=== PATIENT | male | born 1965 | race Caucasian/White ===

== ENCOUNTER → 2017-08-24 09:10 | Outpatient (CLI) | payer OTHER, SELFPAY ==
[2017-08-24 09:42] LABS: Hematocrit 44.6 % (42.0-52.0); Hemoglobin 15.4 g/dL (14.1-18.0)
[2017-08-24 10:38] LABS: Anion Gap 10.3 mEq/L (5-15); Blood Urea Nitrogen 18 mg/dL (7-18); Carbon Dioxide 28 mmol/L (21.0-32.0); Chloride 105 mmol/L (98-107); Creatinine,Serum 0.87 mg/dL (0.70-1.30); Estimated Glomerular Filt Rate 93 ml/min (>60); GFR (African American) 113 ML/MIN (>60); Glucose 141 mg/dL (74-106); Potassium 4.3 mmoL/L (3.5-5.1); Sodium 139 mmol/L (136-145)
[2017-08-24 11:53] LABS: C-Reactive Protein < 0.2 mg/L (0.0-0.9)
[2017-08-24 12:26] LABS: Erythrocyte Sedimentation Rate 8 mm/hr (0-15)
[2017-08-25 18:01] LABS: Antinuclear Antibodies, IFA Negative (.)
[2017-09-02 18:18] LABS: HLA-B27 Negative (.)
== END ==
PROVIDERS: PCP Internal Medicine Adolescent Medicine; Visit Provider Otolaryngology
DX: M79.1 Myalgia (principal); J32.0 Chronic maxillary sinusitis; Z01.818 Encounter for other preprocedural examination
CPT/HCPCS: 36415; 80048; 85014; 85018; 85651; 86038; 86140; 86812

== ENCOUNTER → 2017-08-31 09:02 | Outpatient (CLI) | payer OTHER, SELFPAY ==
--- NOTE | 2017-08-31 09:11 | XR_ITS ---
XR elbow RT min 3V HISTORY: ITS.REASON: RT ELBOW PAIN ORDERING PHYSICIAN: Mitch Hernandez MD PATIENT AGE: 51 years COMPARISON: None FINDINGS: BONY STRUCTURES: No fracture or dislocation. No lytic or blastic change. Normal mineralization. SOFT TISSUES: Unremarkable. No radio opaque foreign bodies. No displaced fat pad. JOINT SPACE: Well-preserved. No significant arthritic changes evident. IMPRESSION: Negative elbow.
== END ==
PROVIDERS: PCP Internal Medicine Adolescent Medicine; Visit Provider Internal Medicine Adolescent Medicine
DX: M25.521 Pain in right elbow (principal)
CPT/HCPCS: 73080

== ENCOUNTER → 2017-09-09 09:06 | Outpatient (CLI) | payer OTHER, SELFPAY ==
--- NOTE | 2017-09-09 09:24 | MR_ITS ---
MR elbow RT wo con CLINICAL INDICATION: Right lateral elbow pain ITS.REASON: RIGHT ELBOW PAIN ORDERING PHYSICIAN: Mitch Hernandez MD PATIENT AGE: 51 years COMPARISON: Radiograph 08/31/2017 FINDINGS: There is normal alignment. No fracture or bone bruise evident. The ulnar collateral ligament is intact. There is increased T2 signal involving the proximal aspect of the radial collateral ligament at the insertion on the distal humerus consistent with at least a partial tear.. The lateral ulnar collateral ligament appears intact. The annular ligament also appears intact. There is increased T2 signal involving the proximal aspect of the common extensor tendon consistent with lateral epicondylitis. Common flexor tendon appears intact. The brachialis tendon and biceps tendon appear intact. IMPRESSION: 1. Increased T1 and T2 signal involves the proximal aspect of the common extensor tendon consistent with partial tear/tendinosis/tendinopathy i.e., lateral epicondylitis 2. Partial tear of the radial collateral ligament suspected.
== END ==
PROVIDERS: Family Provider Internal Medicine Adolescent Medicine; PCP Internal Medicine Adolescent Medicine; Visit Provider Internal Medicine Adolescent Medicine
DX: M25.521 Pain in right elbow (principal)
CPT/HCPCS: 73221

== ENCOUNTER → 2019-03-06 07:55 | Outpatient (POV) | payer OTHER, SELFPAY | PROVIDERS: Visit Provider Dermatology | DX: Z00.00 Encounter for general adult medical examination without abnormal findings (principal) ==

== ENCOUNTER → 2020-03-19 12:56 | Outpatient (CLI) | payer OTHER, SELFPAY ==
--- NOTE | 2020-03-19 13:03 | XR_ITS ---
PROCEDURE: XR HAND LT MIN 3V CLINICAL INDICATION: L HAND PAIN Pain and swelling COMPARISON: No exams were available for comparison FINDINGS: No fracture or dislocation. No lytic or blastic change. There is normal mineralization. The joint spaces are well-preserved. No significant degenerative/arthritic changes. No erosive changes evident. Other findings:None. IMPRESSION: No acute findings. Dictated b Rodri Ozuna MD 03/19/2020 13:33 Rodri Ozuna MD in [place] 03/19/2020 13:33
== END ==
PROVIDERS: PCP Internal Medicine Adolescent Medicine; Visit Provider Internal Medicine Adolescent Medicine
DX: M79.642 Pain in left hand (principal)
CPT/HCPCS: 73130

== ENCOUNTER → 2020-03-20 07:33 | Outpatient (CLI) | payer OTHER, SELFPAY ==
[2020-03-20 08:11] LABS: Basophils % 0.8 % (0.1-2.0); Eosinophils # 0.2 K/mm3 (0.0-0.4); Eosinophils % 3.7 % (0.1-12.0); Hematocrit 41.7 % (42.0-52.0); Lymphocytes # 1.9 K/mm3 (0.7-4.5); Lymphocytes % 40.5 % (10-50); Mean Corpuscular Hemoglobin 31.4 pg (27.0-31.2); Mean Corpuscular Volume 87.2 fl (80-94); Mean Platelet Volume 8.4 fl (7.4-10.4); Monocytes # 0.3 K/mm3 (0.1-1.0); Monocytes % 6.4 % (1.7-9.3); Neutrophils # 2.3 K/mm3 (1.8-7.8); Neutrophils % 48.5 % (37.0-80.0); Platelet Count 197 K/mm3 (142-424); Red Blood Count 4.78 M/mm3 (4.60-6.20); Red Cell Distribution Width 13.5 % (11.5-17.5); White Blood Count 4.8 K/mm3 (4.8-10.8)
[2020-03-20 08:29] LABS: Chloride 105 mmol/L (98-107); Potassium 4.6 mmoL/L (3.5-5.1); Sodium 141 mmol/L (136-145)
[2020-03-20 08:31] LABS: Alanine Aminotransferase 21 U/L (12-78); Alkaline Phosphatase 81 U/L (38-126); Anion Gap 12.6 mEq/L (5-15); Aspartate Amino Transferase 22 U/L (17-59); Bilirubin,Total 0.5 mg/dl (0.2-1.3); Blood Urea Nitrogen 20 mg/dl (9-20); Carbon Dioxide 28 mmol/L (22.0-30.0); Creatine Kinase 72 U/L (55-170); Estimated Glomerular Filt Rate 102 ml/min (>60); GFR (African American) 123 ML/MIN (>60)
[2020-03-20 08:32] LABS: Albumin Level 4.2 g/dl (3.5-5.0); Albumin/Globulin Ratio 1.9 (1.1-1.8); Calcium 9.7 mg/dl (8.4-10.2); Chol/HDL Ratio 2.9 (1-3.5); Cholesterol 144 mg/dl (140-200); Globulin 2.2 g/dL (1.3-3.2); Glucose 113 mg/dl (74-100); HDL Cholesterol 49 mg/dl (40-60); Magnesium 2.1 mg/dl (1.6-2.3); Total Protein,Serum 6.4 g/dl (6.3-8.2); Triglycerides 69 mg/dl (30-150); VLDL Cholesterol 14 mg/dL (0-40)
[2020-03-20 08:43] LABS: Direct LDL Cholesterol 86.81 mg/dL (100-129)
[2020-03-20 08:49] LABS: 25-OH Vitamin D, Total 35.8 ng/mL (30-100)
[2020-03-20 08:51] LABS: Triiodothryronine (T3) Uptake 33 % (23.5-40.5)
[2020-03-20 08:52] LABS: Free Thyroxine Index 2.8 ug/dL (5.93-13.13); T4 (Thyroxine) 8.4 ug/dl (5.53-11.0)
[2020-03-20 08:55] LABS: Erythrocyte Sedimentation Rate 8 mm/hr (0-20)
[2020-03-20 09:06] LABS: Thyroid Stimulating Hormone 1.62 uIU/mL (0.465-4.68)
[2020-03-21 14:15] LABS: Vitamin B12 564 pg/mL (232-1245)
== END ==
PROVIDERS: Visit Provider Internal Medicine Adolescent Medicine
DX: Z00.00 Encounter for general adult medical examination without abnormal findings (principal); M79.10 Myalgia, unspecified site
CPT/HCPCS: 36415; 80053; 80061; 82306; 82550; 82607; 83735; 84436; 84443; 84479; 85025; 85651

== ENCOUNTER → 2020-03-29 07:13 | Outpatient (CLI) | payer OTHER, SELFPAY ==
[2020-03-29 07:58] LABS: Erythrocyte Sedimentation Rate 8 mm/hr (0-20)
[2020-03-29 10:01] LABS: Uric Acid 6.2 mg/dl (3.5-8.5)
== END ==
PROVIDERS: Visit Provider Internal Medicine Adolescent Medicine
DX: M12.9 Arthropathy, unspecified (principal)
CPT/HCPCS: 36415; 84550; 85651

== ENCOUNTER 2021-01-05 19:49 | Emergency (ER) | payer OTHER, SELFPAY ==
[2021-01-05 20:02] VITALS: BP 151/85; PULSE 83; RESP 18; TEMP 37.2; O2SAT 97; BMI 31.5
--- NOTE | 2021-01-05 20:17 | HMH.EDUTC ---
[facility] Disposition Clinical Impression: Sinusitis Qualifiers: Sinusitis location: unspecified location Chronicity: acute Recurrence: non-recurrent Qualified Code(s): J01.90 - Acute sinusitis, unspecified Disposition: Home, Self-Care Condition on Discharge: Good Instructions: Sinusitis, DI for Sinusitis Additional Instructions: Drink plenty of fluids. Take tylenol or ibuprofen for pain or fever. Take the medications as directed. Follow up with your regular doctor. GO TO THE ER FOR ANY WORSENING SYMPTOMS Prescriptions: predniSONE [Deltasone 10mg tablet] 10 mg PO BID 3 Days #6 tab Transmission Status: Received by [facility] # Benzonatate [Tessalon Perle 100mg Cap] 100 mg PO TIDP PRN #30 cap PRN Reason: Cough Transmission Status: Received by [facility] # Azithromycin [Z-Ludwig 250mg Tab*] 250 mg PO UD DOSE PK #6 tab Transmission Status: Received by [facility] # Referrals: Mitch Hernandez MD [Primary Care Provider] - Time of Disposition: 20:21 Medical Decision Making - Medical Records Medical records reviewed: No: I reviewed the patient's medical records. - Sunil Inquiry Pt receiving controlled substance: No Vital Signs: 01/05/21 20:02 01/05/21 20:24 Temperature 99.0 F 99.0 F Temperature Source Oral Pulse Rate 83 Pulse Rate [Right Brachial] 83 Respiratory Rate 18 18 Blood Pressure 151/85 H Blood Pressure [Right Arm] 151/85 H Blood Pressure Mean [Right Arm] 107 Blood Pressure Source [Right Arm] Automatic Cuff Blood Pressure Position [Right Arm] Sitting 02 Sat by Pulse Oximetry 97 Oxygen Delivery Method Room Air Orders (Tests/Meds): ED MEDICATIONS Discontinued Medications Generic Name Dose Route Start Last Admin Trade Name Freq PRN Reason Stop Dose Admin Ceftriaxone Sodium 1 gm 01/05/21 20:12 01/05/21 20:23 Ceftriaxone 1gm Vial IM 01/05/21 20:13 1 gm ONCE ONE Administration Protocol Lidocaine HCl 0 ml 01/05/21 20:12 01/05/21 20:23 Lidocaine 1% 5ml Pf Vial IM 01/05/21 20:13 2.1 ml ONCE ONE Administration Methylprednisolone Sodium Succinate 125 mg 01/05/21 20:12 01/05/21 20:23 Methylprednisolone Sod Succ 125mg Vial IM 01/05/21 20:13 125 mg ONCE ONE Administration [facility] HPI - General Stated complaint: cough,sinus Time Seen by Provider: 01/05/21 20:17 Mode of Arrival: Ambulatory Source of Information: Patient Limitations: No Limitations Description of Symptoms (Recalled from Triage Doc. by RN): PATIENT C/O SINUS DRAINAGE AND DRY COUGH SINCE TUESDAY MORNING HEENT Symptoms (Recalled from RN notes): Yes Resp Symptoms (Recalled from RN notes): Yes Skin Symptoms (Recalled from RN notes): No MS Symptoms (Recalled from RN notes): No Functional Status (Recalled from RN notes): WNL - History of Present Illness Provider Complaint: He states that he has had sinus congestion, sinus drainage and a scratchy sore throat for the past 2 days. - Related Data Previous Rx's Medication Instructions Recorded Azithromycin [Z-Ludwig 250mg Tab*] 250 mg PO UD DOSE PK #6 tab 01/05/21 Benzonatate [Tessalon Perle 100mg 100 mg PO TIDP PRN #30 cap 01/05/21 Cap] predniSONE [Deltasone 10mg tablet] 10 mg PO BID 3 Days #6 tab 01/05/21 Allergies Allergy/AdvReac Type Severity Reaction Status Date / Time No Known Allergies Allergy Verified 01/05/21 20:04 - Worker's Comp Is this a Worker's Comp case?: No [facility] History - Hepatitis A Screen Drug use history?: No High risk sexual behaviors?: No History of sexually transmitted infection?: No Currently employed?: No Childcare worker?: No Do you have indoor plumbing?: Yes Do you have electricity?: Yes Attestation statement:: This patient has been screened for Hepatitis A risk factors. I have reviewed the patient's past medical history: Yes ROS Obtained: Yes All systems reviewed & no additional complaints - Constitutional Constitutional: Wero
[2021-01-05 20:24] VITALS: BP 151/85; PULSE 83; RESP 18; TEMP 37.2; O2SAT 97
== END 2021-01-05 20:33 | disposition home or self-care (01) ==
PROVIDERS: Emergency Provider Nurse Practitioner Family; PCP Internal Medicine Adolescent Medicine
DX: J01.90 Acute sinusitis, unspecified (principal)
CPT/HCPCS: 96372; 99202; G0463

== ENCOUNTER → 2021-06-15 12:13 | Outpatient (CLI) | payer OTHER, SELFPAY ==
[2021-06-15 12:39] LABS: Basophils # 0.1 K/mm3 (0-0.2); Eosinophils # 0.2 K/mm3 (0.0-0.4); Eosinophils % 3.4 % (0.1-12.0); Hematocrit 44.2 % (42.0-52.0); Hemoglobin 14.8 g/dL (14.1-18.0); Lymphocytes # 2.3 K/mm3 (0.7-4.5); Lymphocytes % 39.9 % (10-50); Mean Corpuscular HGB Conc 33.6 g/dL (31.8-35.4); Mean Corpuscular Hemoglobin 30.9 pg (27.0-31.2); Mean Corpuscular Volume 91.9 fl (80-94); Mean Platelet Volume 8.2 fl (7.4-10.4); Monocytes # 0.3 K/mm3 (0.1-1.0); Monocytes % 5.7 % (1.7-9.3); Neutrophils # 2.9 K/mm3 (1.8-7.8); Neutrophils % 50.1 % (37.0-80.0); Platelet Count 211 K/mm3 (142-424); Red Blood Count 4.81 M/mm3 (4.60-6.20); Red Cell Distribution Width 13.6 % (11.5-17.5); White Blood Count 5.9 K/mm3 (4.8-10.8)
[2021-06-15 13:46] LABS: Alanine Aminotransferase 18 U/L (12-78); Albumin Level 4.3 g/dl (3.5-5.0); Albumin/Globulin Ratio 1.9 (1.1-1.8); Alkaline Phosphatase 92 U/L (38-126); Anion Gap 12.1 mEq/L (5-15); Aspartate Amino Transferase 21 U/L (17-59); Bilirubin,Total 0.4 mg/dl (0.2-1.3); Blood Urea Nitrogen 14 mg/dl (9-20); Calcium 9.2 mg/dl (8.4-10.2); Carbon Dioxide 27 mmol/L (22.0-30.0); Chloride 107 mmol/L (98-107); Chol/HDL Ratio 3.6 (1-3.5); Cholesterol 171 mg/dl (140-200); Estimated Glomerular Filt Rate 118 ml/min (>60); GFR (African American) 143 ML/MIN (>60); Globulin 2.3 g/dL (1.3-3.2); Glucose 99 mg/dl (74-100); HDL Cholesterol 47 mg/dl (40-60); Potassium 4.1 mmoL/L (3.5-5.1); Sodium 142 mmol/L (136-145); Total Protein,Serum 6.6 g/dl (6.3-8.2); Triglycerides 118 mg/dl (30-150); VLDL Cholesterol 24 mg/dL (0-40)
[2021-06-15 13:57] LABS: Direct LDL Cholesterol 106.21 mg/dL (100-129)
[2021-06-15 14:03] LABS: Hemoglobin A1C 5.9 % (4.0-6.0)
[2021-06-15 14:16] LABS: Free Thyroxine Index 2.7 ug/dL (5.93-13.13); T4 (Thyroxine) 8.1 ug/dl (5.53-11.0); Triiodothryronine (T3) Uptake 33 % (23.5-40.5)
[2021-06-15 14:30] LABS: Thyroid Stimulating Hormone 1.18 uIU/mL (0.465-4.68)
[2021-06-15 14:35] LABS: Vitamin B12 637 pg/mL (239-931)
== END ==
PROVIDERS: Visit Provider Internal Medicine Adolescent Medicine
DX: M79.10 Myalgia, unspecified site (principal); G60.9 Hereditary and idiopathic neuropathy, unspecified
CPT/HCPCS: 36415; 80053; 80061; 82607; 83036; 83735; 84436; 84443; 84479; 85025

== ENCOUNTER → 2021-09-01 08:03 | Outpatient (CLI) | payer OTHER, SELFPAY | PROVIDERS: Visit Provider Nurse Practitioner | DX: U07.1 COVID-19 (principal) | CPT/HCPCS: C9803; U0003; U0005 ==

== ENCOUNTER 2022-01-10 14:11 | Emergency (ER) | payer OTHER, SELFPAY ==
[2022-01-10 15:01] VITALS: BP 137/82; PULSE 79; RESP 18; TEMP 37.8; O2SAT 96; BMI 34.9
--- NOTE | 2022-01-10 15:25 | HMH.EDUTC ---
[facility] [place] Clinical Impression: Otitis media Qualifiers: Otitis media type: unspecified Laterality: right Qualified Code(s): H66.91 - Otitis media, unspecified, right ear Disposition: Home, Self-Care Condition on Discharge: Good Instructions: Middle Ear Infection, Amoxicillin and Clavulanic Acid, Ruptured Eardrum Additional Instructions: Call ENT and make appointment for follow up and re-evaluation *Monitor Temp, Over the counter Motrin or Tylenol as directed/as needed Tylenol every 4 hours and Motrin every 6 hours (as long as your family doctor has told you that you can take it) for fever or pain. and straight to ER if unable to lower temp less than 101.0 after medication given *Warm salt water gargles may help to soothe the throat *Throat Lozenges *Warm fluids like tea with honey may help to soothe the throat *Sleep elevated *Humidifier/Vaporizer Your throat swab was sent for culture. Those results are typically sent to your primary care. Be sure to follow up in 2-3 days with your family doctor/primary care physician if no improvement so they can review those result and treat if necessary. If you don?t have a primary care doctor, I recommend you get one but in the mean time, you will have to return to a walk in clinic Follow up IMMEDIATELY for new or worsening symptoms or no Noticeable improvement over the next 48-72 hours. 911 for difficulty breathing or swallowing Prescriptions: Amoxicillin [Amoxicillin 500mg Cap] 500 mg PO TID #30 cap Transmission Status: Pending to [id number] predniSONE [Deltasone 10mg tablet] 10 mg PO BID 3 Days #6 tab Transmission Status: Pending to [id number] Referrals: Mitch Hernandez MD [Primary Care Provider] - As needed Vipul Cardoso MD [Physician] - Oli Angeles MD [Physician] - Time of Disposition: 15:50 Medical Decision Making - Sunil Inquiry Pt receiving controlled substance: No Sunil was queried for this patient: No Vital Signs: 01/10/22 15:01 Temperature 100.0 F H Temperature Source Oral Pulse Rate [Left Radial] 79 Respiratory Rate 18 Blood Pressure [Right Arm] 137/82 Blood Pressure Mean [Right Arm] 100 02 Sat by Pulse Oximetry 96 - Lab Data Lab results reviewed: Yes: I reviewed the patient's lab results. Lab Results 01/10/22 15:00: Group A Strep Rapid Negative Orders (Tests/Meds): ORDERS Category Date Time Status Strep Screen Confirmation Stat Micro 01/10/22 15:00 [place] [facility] [place] - General Stated complaint: Ear ache and congestion Time Seen by Provider: 01/10/22 15:25 Source of Information: Patient Description of Symptoms (Recalled from Triage Doc. by RN): patient comes in today with complaints of ear pain and throat pain. patient states that he went to the doctor a month ago, he was placed on medication, this past tuesday patient was given steroid shot. tuesday his throat began hurting and right ear began hurting. pt states that his ear drum busted and he has had drainage HEENT Symptoms (Recalled from RN notes): Yes Resp Symptoms (Recalled from RN notes): No Skin Symptoms (Recalled from RN notes): No MS Symptoms (Recalled from RN notes): No Functional Status (Recalled from RN notes): wnl - History of Present Illness Provider Complaint: Patient state that he started having sinus issues about a month ago States that it started after he was clearing some hay State that PCP give him some steriods and it got a little better then last week started back and he got a steriod shot from his PCP State that yesterday his throat started hurting and continued to get worse throughout the day and his right ear was hurting and felt full States that last night he started chewing some gum and felt a pop in his right ear and fluid started coming out States that today he is still having pain in his throat with swelling and pain in his right ear - Related Data Previous Rx's Medication Instructions Recorded Wai
[2022-01-10 15:35] LABS: Strep Scrn Group A (Rapid) Negative (Negative)
[2022-01-10 16:07] VITALS: BP 137/82; PULSE 79; RESP 18; TEMP 37.8
== END 2022-01-10 16:08 | disposition home or self-care (01) ==
PROVIDERS: Emergency Provider Nurse Practitioner; PCP Internal Medicine Adolescent Medicine
DX: H66.91 Otitis media, unspecified, right ear (principal)
CPT/HCPCS: 87430; 99212; G0463

== ENCOUNTER 2022-10-17 18:25 | Emergency (ER) | payer OTHER, SELFPAY ==
[2022-10-17 18:27] VITALS: BP 139/93; PULSE 78; RESP 18; TEMP 36.8; O2SAT 99; BMI 33.0
--- NOTE | 2022-10-17 18:31 | CT_ITS ---
PROCEDURE INFORMATION: Exam: CT Abdomen And Pelvis Without Contrast Exam date and time: 10/17/2022 5:44 PM Age: 57 years old Clinical indication: Abdominal pain; Flank; Left; Additional info: L kidney stone pain TECHNIQUE: Imaging protocol: Computed tomography of the abdomen and pelvis without contrast. Radiation optimization: All CT scans at this facility use at least one of these dose optimization techniques: automated exposure control; mA and/or kV adjustment per patient size (includes targeted exams where dose is matched to clinical indication); or iterative reconstruction. REPORTING DATA: Count of CT and Cardiac NM exams in prior 12 months: This patient has received 0 known CTs and 0 known cardiac nuclear medicine studies in the 12 months prior to the current study. COMPARISON: No relevant prior studies available. FINDINGS: Liver: Normal. No mass. Gallbladder and bile ducts: Normal. No calcified stones. No ductal dilation. Pancreas: Normal. No ductal dilation. Spleen: Normal. No splenomegaly. Adrenal glands: Normal. No mass. Kidneys and ureters: On axial image 106, there is a 3.5 mm stone at the left ureterovesical junction producing mild left hydroureteronephrosis and moderate left perinephric edema. A 7 mm caliceal stone is noted in the left kidney. Right kidney appears normal. Stomach and bowel: Unremarkable. No obstruction. No mucosal thickening. Appendix: No evidence of appendicitis. Intraperitoneal space: Unremarkable. No free air. No significant fluid collection. Vasculature: Unremarkable. No abdominal aortic aneurysm. Lymph nodes: Unremarkable. No enlarged lymph nodes. Urinary bladder: Unremarkable as visualized. Reproductive: Unremarkable as visualized. Bones/joints: Mild degenerative changes are noted throughout the lumbar spine. Soft tissues: There is a small fat containing left inguinal hernia. IMPRESSION: 3.5 mm left UVJ stone with mild left hydronephrosis and significant left perinephric edema/inflammation.
[2022-10-17 18:39] LABS: Microscopic, Urine URINE MICROSCOPIC (MICROSCOPIC)
--- NOTE | 2022-10-17 18:41 | PC.NURSE ---
PT TO CT AT THIS TIME
[2022-10-17 18:42] LABS: Appearance,Urine SL CLOUDY (Clear); Bilirubin,Urine Negative (Negative); Blood, Urine 3+ (Negative); Color,Urine YELLOW (Yellow); Glucose,Urine (UA) Negative (Negative); Ketones,Urine Negative (Negative); Leukocyte Esterase,Urine Negative (Negative); Nitrate,Urine Negative (Negative); PH,Urine 6.5 (5.0-8.5); Protein,Urine Negative (Negative); Specific Gravity, Urine 1.025 (1.005-1.030); Urobilinogen,Urine 0.2 EU/dl (0.2)
--- NOTE | 2022-10-17 18:48 | PC.NURSE ---
PT RETURNED FROM CT
--- NOTE | 2022-10-17 18:53 | PC.NURSE ---
DR POLLOCK AT BEDSIDE
[2022-10-17 18:58] LABS: Bacteria,Urine Trace /lpf; Calcium Oxalate Crystals,Urine Trace /lpf; RBC,Urine TNTC #/hpf (0-3); Squamous Epithelial Cell,Urine Occasional #/hpf (0-5); WBC,Urine Occasional #/hpf (0-3)
[2022-10-17 19:00] VITALS: BP 155/89; PULSE 76; O2SAT 96
[2022-10-17 19:07] LABS: Chloride 101 mmol/L (98-107)
[2022-10-17 19:08] LABS: Sodium 135 mmol/L (136-145)
[2022-10-17 19:10] LABS: Alanine Aminotransferase 20 U/L (12-78); Alkaline Phosphatase 106 U/L (38-126); Aspartate Amino Transferase 28 U/L (17-59); Bilirubin,Total 0.7 mg/dl (0.2-1.3); Blood Urea Nitrogen 17 mg/dl (9-20); Creatinine Clearance Estimated 95 mL/min (50-200); Estimated Glomerular Filt Rate 57 ml/min (>60); GFR (African American) 69 ML/MIN (>60)
[2022-10-17 19:11] LABS: Albumin Level 4.4 g/dl (3.5-5.0); Albumin/Globulin Ratio 1.7 (1.1-1.8); Calcium 8.7 mg/dl (8.4-10.2); Carbon Dioxide 27 mmol/L (22.0-30.0); Globulin 2.6 g/dL (1.3-3.2); Glucose 141 mg/dl (74-100)
--- NOTE | 2022-10-17 19:18 | HMH.EDGENADL ---
Discharge Plan Disposition Patient Disposition: Home, Self-Care Condition: Good Prescriptions Prescriptions: New ondansetron HCl 4 mg tablet 4 mg PO Q8H PRN (Reason: nausea and vomiting) 4 Days Qty: 12 0RF No Action prednisone 10 MG tablet 10 mg PO BID 3 Days Qty: 6 0RF azithromycin 250 MG tablet 250 mg PO UD DOSE PK Qty: 6 0RF Rx Instructions: Take two (2) tablets today, then one (1) tablet days #2 thru #5 benzonatate 100 MG capsule 100 mg PO TIDP PRN (Reason: Cough) Qty: 30 0RF amoxicillin 500 MG capsule 500 mg PO TID Qty: 30 0RF prednisone 10 MG tablet 10 mg PO BID 3 Days Qty: 6 0RF Referrals Follow up/Referrals: John Travis [Primary Care Provider] - See instructions Activity Restrictions/Add. Instructions Additional Instructions/Restrictions: Follow-up with your urologist as soon as you can to go over imaging and discuss further management in the setting of left-sided ureterolithiasis (kidney stone in your ureter) and hematuria (blood in your urine). Take Flomax daily, take Tylenol 1000 mg every 6 hours (4 times daily) and ibuprofen 400 mg every 6 hours (4 times daily) as needed with food and water to prevent GI upset and kidney damage. Oxycodone as needed for breakthrough pain. Zofran every 6-8 hours as needed for nausea and vomiting. If you have any other concerning signs or symptoms and healing inability to tolerate food or drink by mouth, inability to urinate, fevers, chills, intolerable pain, or any other concerns, return to the ER for further evaluation. Clinical Impressions Clinical Impression: Ureterolithiasis Instructions Patient Instructions: DI for Acute Abdominal Pain Discharge ED Provider: Jose Yoo General Adult HPI General Chief complaint: Abdominal Pain Stated complaint: possible Kidney stone Time Seen by Provider: 10/17/22 18:31 Mode of Arrival: Ambulatory Limitations: No Limitations Description of Symptoms (Recalled from ER Triage Doc. by RN): PT REPORTS kidney stone LEFT SIDED BACK PAIN THAT RADIATES TO GROIN. HX OF KIDNEY STONES. History of Present Illness HPI narrative: This is a 57-year-old male with history of kidney stones, hematuria (idiopathic), strong smoking history who is presenting with left flank and abdominal pain. Patient states that pain started last night, got worse into today 10/17. Started in his left flank, migrated to his left upper quadrant/left lower quadrant. Sharp, intermittent, stabbing, 5 out of 10 and brought him to his knees. On arrival to the emergency department, mild in intensity. Patient states he has not had fevers, chills, vomiting, weight loss or weight gain, night sweats, diarrhea, but has had constipation. No evidence of hematochezia whether bright or dark red. Related Data Previous Rx's Medication Instructions Recorded azithromycin 250 mg tablet 250 mg PO UD DOSE PK #6 tabs 01/05/21 benzonatate 100 mg capsule 100 mg PO TIDP PRN Cough #30 caps 01/05/21 prednisone 10 mg tablet 10 mg PO BID 3 days #6 tabs 01/05/21 amoxicillin 500 mg capsule 500 mg PO TID #30 caps 01/10/22 prednisone 10 mg tablet 10 mg PO BID 3 days #6 tabs 01/10/22 ondansetron HCl 4 mg tablet 4 mg PO Q8H PRN nausea and 10/17/22 vomiting 4 days #12 tabs Allergies Allergy/AdvReac Type Severity Reaction Status Date / Time No Known Allergies Allergy Verified 01/10/22 15:04 [facility] Disclaimer: The information contained in this section may have been updated after the patient was seen, as this information can be updated by other users. Social History Smoking Status: Never smoker alcohol intake: former current occupational status: employed Travel in the last 8 weeks: None ROS Obtained: Yes All systems reviewed & no additional complaints except as documented Physical Exam General General appearance: alert and in no apparent distress Head Head exam: atraumatic, normocephalic and normal inspection
[2022-10-17 19:30] VITALS: BP 135/74; PULSE 71; O2SAT 97
[2022-10-17 19:30] LABS: Basophils # 0.1 K/mm3 (0-0.2); Basophils % 0.6 % (0.1-2.0); Eosinophils # 0.1 K/mm3 (0.0-0.4); Eosinophils % 0.7 % (0.1-12.0); Hematocrit 45.8 % (42.0-52.0); Hemoglobin 15.7 g/dL (14.1-18.0); Lymphocytes # 1.5 K/mm3 (0.7-4.5); Lymphocytes % 15.9 % (10-50); Mean Corpuscular HGB Conc 34.4 g/dL (31.8-35.4); Mean Corpuscular Hemoglobin 30.2 pg (27.0-31.2); Mean Platelet Volume 8.1 fl (7.4-10.4); Monocytes # 0.6 K/mm3 (0.1-1.0); Monocytes % 6.6 % (1.7-9.3); Neutrophils # 7.4 K/mm3 (1.8-7.8); Neutrophils % 76.2 % (37.0-80.0); Platelet Count 196 K/mm3 (142-424); Red Cell Distribution Width 13.3 % (11.5-17.5); White Blood Count 9.7 K/mm3 (4.8-10.8)
[2022-10-17 20:00] VITALS: BP 144/72; PULSE 80; O2SAT 97
[2022-10-17 20:10] VITALS: BP 134/79; PULSE 89; RESP 18; TEMP 36.7; O2SAT 97
== END 2022-10-17 20:11 | disposition home or self-care (01) ==
PROVIDERS: Emergency Provider Emergency Medicine; PCP Internal Medicine
DX: N20.1 Calculus of ureter (principal); R10.0 Acute abdomen
CPT/HCPCS: 74176; 80053; 81001; 85025; 96361; 96374; 96375; 99285; J2405